=== PATIENT | female | born 1945 | race Caucasian/White ===

== ENCOUNTER 2016-11-21 11:43 | Observation (INO) | payer MEDICARE, BC ==
[2016-11-21 15:09] LABS: Hematocrit 34 % (35-47); Hemoglobin 11.2 g/dl (12.0-16.0); Mean Corpuscular HGB Conc 33 g/dl (31-36); Mean Corpuscular Hemoglobin 28 pg (27-31); Mean Corpuscular Volume 86 fL (80-97); Mean Platelet Volume 7 um3 (7.4-10.4); Red Blood Count 3.97 10^6/ul (4.0-5.4); Red Cell Distribution Width 14 % (10.5-15); White Blood Count 9.6 10^3/ul (3.5-10.8)
--- NOTE | 2016-11-21 15:12 | RAD ---
Indication: Chest pain. Single frontal view of the chest performed at 1455 hours was reviewed. No prior study is available for comparison.. No mediastinal shift is noted. Heart is of normal size and configuration. Lung heredia appear clear. IMPRESSION: NO ACTIVE CARDIOPULMONARY DISEASE IS NOTED.
--- NOTE | 2016-11-21 15:23 | ED ---
HPI Chest Pain - HPI Summary HPI Summary: Patient presents to the ED with a sudden onset of stabbing chest pain located over the left anterior chest wall which began at 10pm last night which has since improved since this morning. She notes to insomnia since last evening d/ t pain. The pain does not radiate, shift in position and she denies any other symptoms. Not worse with exertion or better with rest. Denies SOB, pressure or pain in the jaw, diaphoresis, feelings of malaise or illness, weakness. She did not take any OTC medications for the pain and denies any NSAID or aspirin use at baseline. Denies calf pain, but states she has been wearing compression hose for a few months for achiness which has helped her symptoms. Denies recent travel or sick contacts. Denies smoking history. PMHx includes HTN for which she takes Lisinopril, Atenolol, Hydrochlorothiazide, Hydralazine. She is a patient of Dr. Munoz for her arthritis and PCP is Dr. Ross. Family hx includes paternal and maternal uncles with HTN, HCL but denies any known VT or deaths related to cardiac pathologies. VS on arrival 148/88; HR 103 and temp 98 %. She has been on steroids (prednisone taper) for 2 weeks which she discontinued from last dose taken 2 days ago. - History of Current Complaint Chief Complaint: EDChestPainROMI Time Seen by Provider: 11/21/16 14:54 Hx Obtained From: Patient Hx Last Menstrual Period: NA Onset/Duration: Started Hours Ago - 14 hours prior to arrival Time of Onset: 22:00 Timing: Constant Initial Severity: Moderate Current Severity: Mild Pain Intensity: 5 Pain Scale Used: 0-10 Numeric Chest Pain Location: Left Anterior Chest Pain Radiates: No Character: Sharp/Stabbing Aggravating Factor(s): Nothing Alleviating Factor(s): Nothing Associated Signs and Symptoms: Positive: Chest Pain - Risk Factors Pulmonary Embolism Risk Factors: Negative TAD Risk Factors: Hypertension, Family Hx AMI/ACS Risk Factors: Obesity, Hypertension PMH/Surg Hx/FS Hx/Imm Hx Previously Healthy: Yes Endocrine/Hematology History: Denies: Hx Diabetes Cardiovascular History: Reports: Hx Hypertension Denies: Hx Pacemaker/ICD Respiratory History: Denies: Hx Asthma Sensory History: Denies: Hx Hearing Aid Psychiatric History: Denies: Hx Panic Disorder - Surgical History Surgery Procedure, Year, and Place: TONSILS, 3 C-SECT, OVARIAN CYST X 3, HYSTERECTOMY, PARATHYROIDECTOMY, - Immunization History Hx Pertussis Vaccination: No Immunizations Up to Date: Unable to Obtain/Confirm Infectious Disease History: No Infectious Disease History: Denies: Traveled Outside the [place] in Last 30 Days - Social History Occupation: Unemployed Lives: With Family Alcohol Use: None Hx Substance Use: No Substance Use Type: Reports: None Hx Tobacco Use: Yes Smoking Status (MU): Unknown if Ever Smoked Do You Chew or Dip Tobacco: No Review of Systems Constitutional: Negative Eyes: Negative Positive: Chest Pain Respiratory: Negative Genitourinary: Negative Positive: no symptoms reported, see HPI Musculoskeletal: Negative Neurological: Negative Psychological: Normal All Other Systems Reviewed And Are Negative: Yes Physical Exam Triage Information Reviewed: Yes Vital Signs On Initial Exam: Initial Vitals Temp Pulse Resp BP Pulse Ox 99.1 F 96 20 145/104 97 11/21/16 11:46 11/21/16 11:46 11/21/16 11:46 11/21/16 11:46 11/21/16 11:46 Vital Signs Reviewed: Yes Appearance: Positive: Well-Appearing, Well-Nourished Skin: Positive: Warm, Skin Color Reflects Adequate Perfusion Head/Face: Positive: Normal Head/Face Inspection Eyes: Positive: EOMI, MARCELA, Conjunctiva Clear Neck: Positive: Supple, Nontender, No Lymphadenopathy Respiratory/Lung Sounds: Positive: Clear to Auscultation, Breath Sounds Present Cardiovascular: Positive: IRR Musculoskeletal: Positive: Normal, Strength/ROM Intact Neurological: Positive: Sensory/Motor Intact, Alert, Oriented to Person Place, Time, Speech Normal Psychiatric: Positive: Normal AVPU Assessment: Alert - Kristen Coma Scale Coma Scale Total: 15 Diagnostics - Vital Signs Vital Signs Temp Pulse Resp BP Pulse Ox 11/21/16 15:00 98.1 F 103 20 145/70 97 11/21/16 14:48 148/88 11/21/16 13:38 99.5 F 93 16 147/89 95 11/21/16 11:46 99.1 F 96 20 145/104 97 - Laboratory Lab Results: Lab Results 11/21/16 Range/Units 14:55 WBC 9.6 (3.5-10.8) 10^3/ul RBC 3.97 L (4.0-5.4) 10^6/ul Hgb 11.2 L (12.0-16.0) g/dl Hct 34 L (35-47) % MCV 86 (80-97) fL MCH 28 (27-31) pg MCHC 33 (31-36) g/dl RDW 14 (10.5-15) % Plt Count 320 (150-450) 10^3/ul MPV 7 L (7.4-10.4) um3 Neut % (Auto) 80.9 (38-83) % Lymph % (Auto) 10.9 L (25-47) % Carver % (Auto) 6.9 (1-9) % Eos % (Auto) 1.3 (0-6) % Baso % (Auto) 0 (0-2) % Absolute Neuts (auto) 7.8 H (1.5-7.7) 10^3/ul Absolute Lymphs (auto) 1.0 (1.0-4.8) 10^3/ul Absolute Monos (auto) 0.7 (0-0.8) 10^3/ul Absolute Eos (auto) 0.1 (0-0.6) 10^3/ul Absolute Basos (auto) 0 (0-0.2) 10^3/ul Absolute Nucleated RBC 0 10^3/ul Nucleated RBC % 0 Result Diagrams: 11/21/16 14:55 11/21/16 14:55 Lab Statement: Any lab studies that have been ordered have been reviewed, and results considered in the medical decision making process. - Radiology No standard instances Xray Interpretation: No Acute Changes Radiology Interpretation Completed By: Radiologist - EKG No standard instances EKG Rhythm: Atrial Fibrillation ST Segment: Normal EKG Comparison: Other - significant change includes new onset a-fib Re-Evaluation - Re-Evaluation First Eval Change: Unchanged - pain has been unchanged since arrival Chest Pain Course/Dx - Course Course Of Treatment: NO CRITICAL CARE TIME. EKG shows new onset a-fib compared with 2008. BNP at 193; D-Dimer elevated at 300. Tachy at 103-110. BP 145/70. She is currently on Lisinopril, Atenolol, Hydrochlorothiazide, Hydralazine. Denies any blood thinners. Obese but otherwise heatlhy. Called hospitalist at 4pm. Agrees to observe patient. Will start Lovenox 1mg/kg. 88kg. Given 80mg Lovenox. She has had the reaction of elevated BP with contrast, but agrees to CTA. Will admit. - Chest Pain Differential Diagnosis/HQI/PQRI: Acute VT, Angina, Pulmonary Embolism, Other: - new onset a-fib - Diagnoses Provider Diagnoses: Atrial fibrillation Discharge - Discharge Plan Condition: Stable Disposition: ADMITTED TO [facility] Referrals: Luciano Ross MD [Primary Care Provider] -
[2016-11-21 15:28] LABS: Albumin 3.7 g/dL (3.2-5.2); C Reactive Protein 71.38 mg/L (< 5.00); Calcium 9.4 mg/dL (8.6-10.3); EGFR African American 121.7 (>60); EGFR Non-African American 94.6 (>60); Globulin 3.6 g/dL (2-4); Magnesium 1.9 mg/dL (1.9-2.7); Potassium 3.7 mmol/L (3.5-5.0); Total Bilirubin 0.8 mg/dL (0.2-1.0); Total Protein 7.3 g/dL (6.4-8.9)
[2016-11-21] MEDS: NS 0.9% 1000 ML* 1,000 ML IV SCH ×2 (15:48→19:42)
[2016-11-21 15:54] LABS: TSH (Thyroid Stimulating Horm) 1.68 mcIU/mL (0.34-5.60)
[2016-11-21] MEDS ORDERED: Enoxaparin(*) 80 MG/0.8 ML SYR SUBCUT SCH (17:00)
[2016-11-21 17:46] LABS: Urine Bacteria Absent (Absent); Urine Bilirubin Negative (Negative); Urine Glucose Negative (Negative); Urine Nitrite Negative (Negative)
[2016-11-21] MEDS ORDERED: Iohexol 350* (CONTRAST) 500 ML MDV IV ONE (17:58)
--- NOTE | 2016-11-21 18:50 | RAD ---
INDICATION: Shortness of breath. Palpitations. Elevated d-dimer. New onset atrial fibrillation. COMPARISON: November 21, 2016 chest radiograph. TECHNIQUE: Multidetector CT images were obtained from the lung apices to the upper abdomen with 75 mL Omnipaque 350 IV contrast. Pulmonary angiogram protocol. Multiplanar reformation including with maximum intensity projection. REPORT: Mild prominence of the lower lung zone interlobular septa. Reference image 21; 3 mm noncalcified nodule at the anterior segment of the RIGHT upper lobe. Reference image 33; 3 mm noncalcified nodule at the lateral segment of the RIGHT middle lobe. Reference image 38; 3 mm noncalcified nodule at the anterior basal segment of the RIGHT lower lobe. Reference image 17; 3 mm noncalcified nodule at the apical posterior segment of the LEFT upper lobe approximating the major fissure. Mild bilateral basilar compressive atelectasis due to cardiomegaly. Trace dependent LEFT pleural effusion. Negative for pneumothorax. 1.1 cm short axis precarinal lymph node. Cardiomegaly. Negative for pericardial effusion. Mild calcific plaque of normal diameter thoracic aorta. No filling defects are identified from the main to the subsegmental pulmonary arteries to indicate presence of a pulmonary embolism. Unremarkable Limited images through the upper abdomen. Negative for suspicious thoracic osseous lesions. IMPRESSION: 1. No evidence for pulmonary embolism. 2. Cardiomegaly. Minimal interstitial edema with associated LEFT pleural effusion. 3. Few tiny low suspicion pulmonary nodules for which reassessment with noncontrast CT in 12 months time suggested in setting of risk factors for bronchogenic carcinoma. 4. Solitary mildly enlarged 1.1 cm short axis precarinal lymph node. Ref: Lety H, Tristen OSPINA, Chad G, et al. Guidelines for Management of Small Pulmonary Nodules Detected on CT Scans: A Statement from the Fleischner Society. January 2005 Radiology, 237, 395-400.
[2016-11-21] MEDS ORDERED: Rivaroxaban TAB(*) 20 MG TAB PO SCH (19:30)
[2016-11-21] MEDS: Diltiazem TAB* 30 MG PO SCH (19:42)
[2016-11-21] MEDS: Atenolol TAB* 50 MG PO SCH (20:50)
[2016-11-21] MEDS: Lisinopril TAB* 10 MG PO SCH (20:50)
--- NOTE | 2016-11-22 00:57 | HP ---
CC: Dr. Luciano Ross * ADMISSION HISTORY AND PHYSICAL: DATE OF ADMISSION: 11/21/16 PRIMARY CARE DOCTOR: Dr. Luciano Ross. MY ATTENDING PHYSICIAN WHILE IN THE HOSPITAL: Dr. Rosetta Loredo * (DICTATED BY [facility]) CHIEF COMPLAINT: Palpitations since last night. HISTORY OF PRESENT ILLNESS: Ms. Lazcano is a 71-year-old female with past medical history significant for hypertension; rheumatoid arthritis; and hyperparathyroidism that has now resolved, who presents with palpitations since last night and stabbing pleuritic pain on her left side. The patient states that chest pain started without any provocation, is worse when moving around and worse with inspiration. The patient rates it as 7/10 and states that it gets better if she lies on her left side. The patient states she has had a previous episode of palpitations similar to this one about 6 months ago that resolved spontaneously by itself, but denies any previous chest pain. The patient states that her legs have been swelling more but that has been a slow increase over significant period of time. The patient denies any decreased exercise tolerance, but states that she got lightheaded and short of breath with exercise yesterday. The patient is just finishing up a dose of prednisone prescribed by her complaint evaluation supervisor for a flare of rheumatoid arthritis she finished 5 days ago. The patient checks her blood pressure 3 times a week normally and was checking every day while she was on prednisone, it was in the 140s/90s and her pulse was 107 while she was on prednisone and normally her blood pressure is in the 120s/70s with her pulse around 80. The patient states that she usually has a cough in the morning that resolves quickly but that she now gets a coughing sensation with every deep breath. The patient denies any history of heart attack, heart failure, blood clots, chest pain, or recent illness. PAST MEDICAL HISTORY: Hypertension, rheumatoid arthritis, hyperparathyroidism. PAST SURGICAL HISTORY: x3, ovarian cyst removal x3, hysterectomy, tonsillectomy, parathyroidectomy. MEDICATIONS: 1. Fish oil 360 mg daily. 2. Lisinopril 40 mg daily. 3. Atenolol 50 mg b.i.d. 4. Hydrochlorothiazide 25 mg daily. 5. Hydralazine 50 mg daily. 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 FAMILY HISTORY: The patient states she has a strong family history for myocardial infarction and hypertension. The patient's aunt has diabetes mellitus. The patient's father of lung cancer. SOCIAL HISTORY: The patient denies ever smoking, denies drinking, denies illicit drugs. 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 The patient is and had 3 kids. REVIEW OF SYSTEMS: The patient denies fevers, chills, nausea, vomiting, constipation, diarrhea, abdominal pain, changes in urine frequency, color, cloudiness, or hematuria. The patient denies weakness, numbness, or tingling in her extremities. The patient denies visual complaints beyond normal decreases in her visual acuity as she ages. The patient states she has many arthralgias due to her rheumatoid arthritis. The patient denies any new rashes. PHYSICAL EXAMINATION GENERAL: The patient is a 71-year-old female, who appears her stated age, sitting on the side of her bed, in no acute distress. VITAL SIGNS: Blood pressure 150/101, heart rate 113, temperature 98.1, respiratory rate 22, oxygen saturation 94% on room air. HEENT: Head normocephalic, atraumatic. Sclerae anicteric. Pupils equal, round , and reactive to light. Pharynx nonerythematous. Mucous membranes moist. NECK: Supple. No adenopathy. No carotid bruit auscultated. RESPIRATORY: There were slight rales that present only in the left lower lobe, otherwise clear to auscultation. Good air exchange bilaterally. CARDIAC: Tachycardic. Irregularly irregular rhythm. No murmurs auscultated. No clicks, murmurs, gallops, or rubs. Radial posterior tibialis and dorsalis pedis pulses 2+ bilaterally. 1+ pitting edema equal bilaterally in the lower extremities. ABDOMEN: Soft, nontender, nondistended. Bowel sounds present in all 4 quadrants. No abdominal bruits auscultated. No hepatosplenomegaly. Aorta nonpalpable. SKIN: No rashes. [place], dry, intact. NEUROLOGIC: Cranial nerves II through XII grossly intact. Alert and oriented x3. DIAGNOSTIC STUDIES/LAB DATA: White blood cell count 9.6, red blood cell count 3.97, hemoglobin 11.2, hematocrit 34. INR 0.96, APTT 35.1, D-dimer 300. Sodium 137, potassium 3.7, chloride 101, carbon dioxide 29, anion gap 7, BUN 13 , creatinine 0.62, glucose 97, lactic acid 0.8, magnesium 1.9. AST 20, ALT 17. Troponin I 0.00. CRP 71.38. BNP 193. TSH 1.68. Urine, yellow clear, positive blood +2, red blood cells present, squamous epithelial cells present. EKG shows irregularly irregular rhythm with discrete P waves consistent with AFib, rate 97. Chest x-ray, no acute cardiopulmonary process. My interpretation shows elevation of the left hemidiaphragm without effusion. CTA of the thorax pending. IMPRESSION: The patient is a 71-year-old female with past medical history significant for hypertension and rheumatoid arthritis who presents with new onset of atrial fibrillation and possible pulmonary embolism. The patient will be admitted overnight, CTA is pending and will be started on anticoagulation with Xarelto. 1. Atrial fibrillation. The patient will be rate controlled with home atenolol and diltiazem 30 mg p.o. q.6 hours. We will discontinue the patient's home hydralazine to hopefully not make the patient hypotensive with the addition of a new rate control and antihypertensive agent. We will order EKG to repeat in the morning as well as labs to check for any electrolyte abnormalities that might occur. The patient will be started on Xarelto 20 mg p.o. daily. The patient will follow up with primary care provider to discuss other options for anticoagulation that may be more financially feasible if her insurance does not cover any of the NOACs. This was discussed with the patient and she is in agreement with the plan. The patient was educated upon and is already familiar with the ramifications of anticoagulation such as increased bleeding, easy bruising and inability to reverse the novel anticoagulation, NOACs. We will order echo for the morning. 2. Chest pain, rule out pulmonary embolism. The patient has chest pain and physical exam consistent with possible pulmonary embolism. We will order CTA to test for pulmonary embolism and the patient is already anticoagulated fully. The patient's possible pulmonary embolism might be contributing to atrial fibrillation. After resolution of pulmonary embolism, the patient should be reassessed for appropriateness of anticoagulation when she returns to normal sinus rhythm. 3. Hypertension. The patient is currently on 4 agents for hypertension and she is currently normotensive. We will reassess the addition or subtraction of these agents as the patient's clinical condition progresses. 4. Rheumatoid arthritis. The patient seems to be in a relatively stable condition with her rheumatoid arthritis, but this is additional cardiovascular risk factor. We will continue to follow up with outpatient complaint evaluation supervisor for rheumatoid arthritis. 5. FEN. The patient is on a heart-healthy diet, no-caffeine and normal saline at 150 mL an hour. We will adjust fluids based on clinical condition and presence or absence of pulmonary embolism. 6. Code status. Full code. The patient's healthcare proxy is her , Wesley Lazcano. 7. DVT prophylaxis. The patient is up ad pete and is being fully anticoagulated with Xarelto at this time. 8. Disposition. The patient is admitted under observation to telemetry. TIME SPENT: Approximately 60 minutes were spent on this admission, 30 of which were spent obtaining her history and physical and discussing treatment options with the patient. This plan has been discussed with my attending, Dr. Rosetta Loredo, and she is in agreement. [facility] [id number]/CPS #: [id number] LOUIE
[2016-11-22] MEDS: Diltiazem TAB* 30 MG PO SCH ×3 (01:19→12:13)
[2016-11-22] MEDS: NS 0.9% 1000 ML* 1,000 ML IV SCH ×2 (02:27→08:59)
[2016-11-22 05:22] LABS: Hematocrit 27 % (35-47); Mean Corpuscular HGB Conc 33 g/dl (31-36); Mean Corpuscular Hemoglobin 28 pg (27-31); Mean Corpuscular Volume 85 fL (80-97); Mean Platelet Volume 7 um3 (7.4-10.4); Red Blood Count 3.19 10^6/ul (4.0-5.4); Red Cell Distribution Width 14 % (10.5-15); White Blood Count 6.3 10^3/ul (3.5-10.8)
[2016-11-22 05:31] LABS: Calcium 8.3 mg/dL (8.6-10.3); EGFR African American 131.4 (>60); EGFR Non-African American 102.2 (>60); HDL Cholesterol 51.3 mg/dL; Potassium 3.5 mmol/L (3.5-5.0)
[2016-11-22] MEDS: Atenolol TAB* 50 MG PO SCH (08:53)
[2016-11-22] MEDS: Lisinopril TAB* 10 MG PO SCH (08:58)
[2016-11-22] MEDS ORDERED: Hydrochlorothiazide TAB* 25 MG PO SCH (09:00)
[2016-11-22] MEDS ORDERED: Cholecalciferol TAB* 1000 UNITS PO SCH (09:00)
--- NOTE | 2016-11-22 12:03 | ECHO ---
Patient: AMANDA GONZALEZ [facility] Rec#: [id number] : 1945 Date: 11/22/2016 Age: 71y Height: 162.56 cm / 64.0 in Weight: 88.45 kg / 194.9 lbs Sex: F BSA: 1.94 Room#: [facility] Admit Date#: 11/21/2016 Type: Inpatient Referring: Yanick Crystal MD Reading: Jamar Garcia MD Family Practice Nurse Practitioner: Ирина Holt,RDCS,RDMS CC: Luciano Ross MD Transthoracic Echocardiogram Indication: AFIB, Edema BP: 127/69 HR: 79 Rhythm: A-Flutter Findings History: HTN, hyperparathyroidism Technical Comments: The study quality is good. Completed 1125 Left Ventricle: The left ventricular chamber size is normal. Mild to moderate concentric left ventricular hypertrophy is observed. There is a prominent septal knuckle. There is normal left ventricular systolic function. The estimated ejection fraction is 55-60%. The assessment of diastolic function is non-diagnostic. Left Atrium: The left atrium is moderate to severely dilated. Right Ventricle: The right ventricle is mildly dilated. The right ventricular global systolic function is mildly reduced. Right Atrium: The right atrium is moderately dilated. Aortic Valve: The aortic valve is trileaflet. The aortic valve leaflets are mildly thickened. Systolic excursion of the aortic valve is normal. There is a trace of aortic regurgitation. There is no evidence of aortic stenosis. Mitral Valve: There is mitral annular calcification. The mitral valve leaflets are mildly thickened. There is moderate to severe mitral regurgitation. at least moderate MR. There is borderline mitral stenosis. Tricuspid Valve: The tricuspid valve leaflets are normal. There is mild to moderate tricuspid regurgitation. There is evidence of moderate pulmonary hypertension. Pulmonic Valve: The pulmonic valve appears normal. There is a trace pulmonic regurgitation. Pericardium: There is no significant pericardial effusion. A pericardial fat pad is visualized. Aorta: There is mild dilatation of the ascending aorta. There is mild dilatation of the aortic arch. There is no dilation of the aortic root. Pulmonary Artery: The main pulmonary artery is not well visualized. Venous: The inferior vena cava is dilated. There is an approximate 50% respiratory change in the inferior vena cava dimension. Summary: There was not any prior study for comparison. Conclusions The left ventricular chamber size is normal. Mild to moderate concentric left ventricular hypertrophy is observed. There is normal left ventricular systolic function. The estimated ejection fraction is 55-60%. The assessment of diastolic function is non-diagnostic. The left atrium is moderate to severely dilated. The right ventricle is mildly dilated. The right atrium is moderately dilated. There is a trace of aortic regurgitation. There is moderate to severe mitral regurgitation. at least moderate MR. There is mild to moderate tricuspid regurgitation. There is evidence of moderate pulmonary hypertension. Measurements Name Value Normal Range RVIDd (AP) 2D 3 cm (0.9 - 2.6) RVDdMajor (2D) 3.5 cm (2.2 - 4.4) RAd ISD 4CH 6.2 cm (3.4 - 4.9) RA (A4C)W 4.7 cm (2.9 - 4.6) IVSd (2D) 1.5 cm (0.6 - 1) LVPWd (2D) 1.3 cm (0.6 - 1) LVIDd (2D) 4.2 cm (3.6 - 5.4) LVIDs (2D) 2.7 cm - LV FS (2D) 36 % (25 - 45) Aortic Annulus 1.9 cm (1.4 - 2.6) Ao root diameter (2D) 2.2 cm (2.1 - 3.5) Ascending Ao 3.7 cm (2.1 - 3.4) Aortic arch 3.7 cm (1.8 - 3.4) LA dimension (AP) 2D 5.5 cm (2.3 - 3.8) LAd ISD 4CH 6.8 cm (2.9 - 5.3) LA ISD 4CH W 5.2 cm (2.5 - 4.5) Name Value Normal Range LA ESV SP 4CH (A/L) 119.62 ml - LA ESV SP 2CH (A/L) 113.77 ml - LA ESV BP (A/L) 116.94 ml - LA ESV BP (A/L) index 60 ml/m2 - LA ESV SP 4CH (MOD) 106.16 ml - LA ESV SP 2CH (MOD) 106.96 ml - Name Value Normal Range MV E-wave Vmax 1.9 m/sec - MV deceleration time 177 msec - LV lateral e' Vmax 0.09 m/sec - LV E:e' lateral ratio 21 ratio - Name Value Normal Range AV Vmax 1.7 m/sec - AV VTI 34.4 cm - AV peak gradient 11.2 mmHg - AV mean gradient 5.9 mmHg - LVOT diameter 2 cm - LVOT Vmax 1 m/sec - LVOT VTI 21.4 cm - LVOT peak gradient 4 mmHg - LVOT mean gradient 2.2 mmHg - DOI (VTI) 0.6 ratio - ROSHAN (continuity Vmax) 1.8 cm2 - ROSHAN (continuity VTI) 2 cm2 - Name Value Normal Range MV Vmax 1.9 m/sec - MV VTI 35.2 cm - MV peak gradient 14 mmHg - MV mean gradient 4.4 mmHg - MV PHT 66 msec - MR Vmax 5.1 m/sec - MR VTI 159 cm - MVA (PHT) 3.3 cm2 - MVA (continuity VTI) 2 cm2 - Name Value Normal Range TR Vmax 3 m/sec - TR peak gradient 36 mmHg - RAP 8 mmHg - RVSP 44 mmHg - IVC diameter 2.3 cm - Name Value Normal Range PV Vmax 0.9 m/sec - PV peak gradient 3.2 mmHg -
[2016-11-22 12:05] VITALS: BP 134/77
--- NOTE | 2016-11-23 07:52 | DS ---
DISCHARGE SUMMARY: DATE OF ADMISSION: 11/21/16 DATE OF DISCHARGE: 11/22/16 ADMITTING PROVIDER: DIVINE Nice PRIMARY CARE PROVIDER: Dr. Luciano Ross. CHIEF COMPLAINT: Progressive shortness of breath, palpitations, and lower extremity edema. PRIMARY DIAGNOSIS: New onset atrial fibrillation. HISTORY OF PRESENT ILLNESS AND HOSPITAL COURSE: Ms. Lazcano is a 71-year-old female with PMH hypertension, rheumatoid arthritis, resolved hyperparathyroidism who presented with chest palpitations since the night prior to admission and stabbing pleuritic chest pain on the left side. Please see H&P on 11/21/16 for full details, but briefly, the patient also attested to progressive shortness of breath and lower extremity edema since 2 to 3 weeks ago. The patient states she got lightheaded and short of breath with exercise day prior to admission. Her pulse was noted to be elevated to 107 at home and she noted a coughing sensation with deep breathing. The patient has never seen a jockey room custodian and denies history of heart attacks, heart failure, blood clots, and chest pain. The patient was found to be in atrial fibrillation in the emergency room with heart rates in the low 100s, peak heart rate 118, and was started on oral diltiazem 30 mg q.6 hours in addition to her home atenolol 50 mg b.i.d. with improved rates into the 80s overnight without any hypotension. She was started on Xarelto 20 mg daily and an echocardiogram was performed which demonstrated moderate to severe mitral valve regurgitation and severe dilation of the left atrium. Ejection fraction was preserved at 55% to 60%. Diastolic function was nondiagnostic. There was trace aortic regurgitation, right atrium was moderately dilated, and right ventricle was mildly dilated. The patient had negative troponin and BNP was slightly elevated at 193. D- dimer was 300 and given pleuritic chest pain, the patient also received a CT angiogram in the ED which did not demonstrate any pulmonary embolism and showed a trace left-sided pleural effusion. There were a few tiny low suspicion pulmonary nodules including 3 mm noncalcified nodule in the lateral segment of the right middle lobe, a 3 mm noncalcified nodule at the anterior basal segment of the right lower lobe, and a 3 mm noncalcified nodule at the apical posterior segment of the left upper lobe approximating the major fissure. Recommendation for noncontrast CT in 12 months was suggested to monitor clinically. The patient was advised to establish care with a jockey room custodian for consideration of electrical cardioversion after she has been anticoagulated (of note, atrial fibrillation likely ongoing for at least 2 weeks per the patient's symptom history), as well as followup with Dr. 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 Of note, the patient had recently been prescribed a taper of prednisone for her rheumatoid arthritis that lasted 2 weeks and ended approximately 10 days ago and remarkably improved her diffuse joint pain including in her bilateral hands and legs, particularly left leg. DISCHARGE MEDICATIONS: The patient's discharge medications included: 1. Atenolol 50 mg p.o. b.i.d. 2. Cholecalciferol 1000 units p.o. 1 tab daily. 3. Diltiazem extended release 120 mg p.o. daily. 4. Hydrochlorothiazide 25 mg p.o. daily. 5. Lisinopril 20 mg p.o. daily. 6. Xarelto 20 mg p.o. daily. Of note, her original hydralazine was not continued on admission or prescribed on discharge to prevent hypotension given the addition of the diltiazem extended release. DISPOSITION: Home. DIET: Heart-healthy low salt. [id number]/[facility] #: [id number] MTDD
== END 2016-11-22 14:18 | disposition home or self-care (01) ==
LOC: ED 11:43 → MEDTELE 16:26
PROVIDERS: ADMIT Hospitalist; ATTEND Internal Medicine
DX: I48.91 Unspecified atrial fibrillation (principal); R06.02 Shortness of breath; R60.9 Edema, unspecified; I34.0 Nonrheumatic mitral (valve) insufficiency; I10 Essential (primary) hypertension; M06.9 Rheumatoid arthritis, unspecified; E21.3 Hyperparathyroidism, unspecified
CPT/HCPCS: 36415; 71010; 71275; 80048; 80053; 80061; 81003; 81015; 82550; 82553; 83605; 83690; 83735; 83880; 84443; 84484; 85025; 85379; 85610; 85730; 86140; 93005; 93306; 99283; A9270-GY; G0378; Q9967

== ENCOUNTER 2016-12-28 10:37 | Observation (INO) | payer MEDICARE, BC ==
--- NOTE | 2016-12-28 12:14 | RAD ---
INDICATION: Shortness of breath. COMPARISON: Comparison is made with a prior chest x-ray study from November 21, 2016. TECHNIQUE: Dual-energy PA and lateral views of the chest were obtained. FINDINGS: The heart is mildly enlarged and unchanged from the prior study. There is a small right basilar infiltrate which appears new. The lungs are otherwise clear. No pleural effusion is seen. IMPRESSION: SMALL RIGHT BASILAR INFILTRATE.
[2016-12-28 13:05] LABS: Urine Bacteria Absent (Absent); Urine Bilirubin Negative (Negative); Urine Glucose Negative (Negative); Urine Nitrite Negative (Negative)
[2016-12-28 13:09] LABS: Hematocrit 21 % (35-47); Mean Corpuscular HGB Conc 33 g/dl (31-36); Mean Corpuscular Hemoglobin 26 pg (27-31); Mean Corpuscular Volume 81 fL (80-97); Mean Platelet Volume 7 um3 (7.4-10.4); Red Blood Count 2.54 10^6/ul (4.0-5.4); Red Cell Distribution Width 15 % (10.5-15); White Blood Count 7.6 10^3/ul (3.5-10.8)
[2016-12-28 13:14] LABS: Comments Flag Yes
[2016-12-28 13:16] LABS: Hemoglobin 6.7 g/dl (12.0-16.0)
[2016-12-28 13:18] LABS: ALT 13 U/L (7-52); AST 17 U/L (13-39); Albumin 3.6 g/dL (3.2-5.2); Alkaline Phosphatase 65 U/L (34-104); Anion Gap 6 mmol/L (2-11); Blood Urea Nitrogen 19 mg/dL (6-24); CO2 Carbon Dioxide 27 mmol/L (22-32); Calcium 8.8 mg/dL (8.6-10.3); Chloride 104 mmol/L (101-111); Creatine Kinase 75 U/L (10-223); EGFR African American 100.8 (>60); EGFR Non-African American 78.4 (>60); Globulin 3.1 g/dL (2-4); Glucose 116 mg/dL (70-100); Magnesium 1.9 mg/dL (1.9-2.7); Sodium 137 mmol/L (133-145); Total Protein 6.7 g/dL (6.4-8.9)
[2016-12-28 13:45] LABS: TSH (Thyroid Stimulating Horm) 1.29 mcIU/mL (0.34-5.60)
[2016-12-28] MEDS ORDERED: guaiFENesin/CODIEN 100MG-10MG* 5 ML UDC PO PRN (14:42)
[2016-12-28 15:23] LABS: Total Iron Binding Capacity 477 mcg/dL (250-450); Transferrin 341 mg/dL (203-362)
[2016-12-28 15:40] LABS: Iron < 15 ug/dL (50-212)
[2016-12-28 15:48] LABS: Folate 14.05 ng/mL (>3.99)
[2016-12-28 15:49] LABS: Vitamin B12 538 pg/mL (180-914)
[2016-12-28] MEDS: Omeprazole CAP* 20 MG PO SCH (16:10)
[2016-12-28] MEDS: Atenolol TAB* 50 MG PO SCH ×2 (16:10→16:18)
[2016-12-28] MEDS: predniSONE TAB* 5 MG PO SCH (16:11)
--- NOTE | 2016-12-28 18:29 | HP ---
CC: Dr. Ross; Dr. Munoz; Dr. Lira HISTORY AND PHYSICAL: DATE OF ADMISSION: 12/28/16 PRIMARY CARE PHYSICIAN: Dr. Ross CHIEF COMPLAINT: Dyspnea on exertion, blood-tinged sputum. HISTORY OF PRESENT ILLNESS: Ms. Lazcano is a 71-year-old female with past medical history of hypertension; polymyalgia rheumatica, on prednisone; hyperparathyroidism, status post parathyroidectomy and recently diagnosed atrial fibrillation on Xarelto, who presented to the hospital with progressive shortness of breath and occasional blood-tinged sputum. The patient was hospitalized at [facility] in early November with new onset atrial fibrillation. At that time, she was started on Xarelto as well as rate controlling agent with improvement in her heart rate. She states that around that time, she developed some blood tinge in her sputum, which has been fairly persistent. She states that she has been coughing frequently, but she feels that the total amount of blood over the course of a day would not be enough to fill a [place] cup. The patient underwent a REKHA with cardioversion on 12/16/16 with successful cardioversion to sinus rhythm after initial failure with 120 joules. She successfully converted with 200 joules. The patient has noted over the course of the past few months, she has been more fatigued and has been having more dyspnea on exertion. She has not noticed any bright red blood per rectum. No melena. Denies any chest pain. She has no history of ulcers. Does not take any NSAIDs and has never had any significant indigestion. Recently, the patient went to [facility] and had significant shortness of breath just going from her handicap spot to the front of the store, which is very unusual for her. She saw Dr. Ross in the office yesterday, who had ordered the CBC and she was noted to have a significantly low hemoglobin of 7, which was down from 12 just a few months ago. He instructed her to stop taking Xarelto, but she said she had already taken the dose last night. 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 However, the patient felt that she needed to come to the hospital for further evaluation. PAST MEDICAL HISTORY: Hypertension, polymyalgia rheumatica, hyperparathyroidism , AFib. PAST SURGICAL HISTORY: x3, ovarian cyst removal x3, hysterectomy, tonsillectomy, parathyroidectomy. HOME MEDICATIONS: 1. Atenolol 50 mg by mouth daily. 2. Guaifenesin-codeine 5 mL by mouth every 4 hours as needed for cough. 3. Prednisone 5 mg by mouth daily. 4. Was on Xarelto 20 mg by mouth daily, but this was stopped by her PCP yesterday. 5. [place]-3 fatty acid 360 mg by mouth daily. 6. Lasix 20 mg by mouth daily. 7. Diltiazem 120 mg by mouth daily. 8. Vitamin D3 1000 units by mouth daily. ALLERGIES: The patient reports allergy to MRI contrast. FAMILY HISTORY: Significant for an aunt with diabetes, father with lung cancer. Reports widespread CAD and hypertension in the family. SOCIAL HISTORY: The patient had no significant smoking history. Denies any current alcohol use. No illicit drug use. REVIEW OF SYSTEMS: A 12-point review of systems is negative except for that is known in the HPI. PHYSICAL EXAMINATION GENERAL: The patient is a pleasant elderly female, lying in bed, in no apparent distress. VITAL SIGNS: On admission, temperature 98.4, heart rate of 64, respiratory rate of 20, O2 saturation is 98% on room air, blood pressure 150/83. HEENT: Head: Normocephalic, atraumatic. Eyes: Pupils are equal, round and reactive to light and accommodation. Anicteric sclerae. Pale conjunctivae. ENT: Dry mucous membranes. NECK: No cervical adenopathy. LUNGS: Clear to auscultation bilaterally. No wheezes, rales, or rhonchi. CARDIOVASCULAR: Mild bradycardia. No murmurs, gallops, or rubs. ABDOMEN: Soft, nontender, nondistended. Bowel sounds positive. EXTREMITIES: No cyanosis, clubbing, or edema. NEUROLOGIC: The patient is alert and oriented x3. No focal neurological deficits. DIAGNOSTIC STUDIES/LAB DATA: White blood cell count of 7.6, hemoglobin of 6.7 , hematocrit of 21, platelets of 341. Sodium 137, potassium 4.0, chloride of 104, carbon dioxide 27, BUN of 19, creatinine of 0.73, glucose of 116, lactic acid of 0.9. LFTs within normal limits. Troponin of 0.00. TSH of 1.29. UA with 2+ blood with absent rbc's. Chest x-ray, personally reviewed, read as possible right basilar infiltrate, although I do not appreciate much on the imaging. EKG shows normal sinus rhythm , no acute ST changes. ASSESSMENT AND PLAN: Acute blood loss anemia in a 71-year-old female with a past medical history of hypertension; polymyalgia rheumatica; hyperparathyroidism; atrial fibrillation, on Xarelto; aoknolri-pu-aubhip mitral regurgitation. 1. Acute blood loss anemia, seems most likely secondary to Xarelto use. No clear signs of GI bleed. The patient's BUN is normal, although could certainly has been having slow bleed over these past few months, specifically with her prednisone use. It seems unlikely that the amount of blood-tinged mucus she is describing could account for this amount of anemia. Guaiac was negative in the emergency department. The patient was ordered for 2 units of packed red blood cells, which will be transfused now. We will hold her Xarelto. We will check iron studies and B12 and folate, although with a normal MCV, it seems like this is more of an acute issue. 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 I will start a PPI in case there is some gastritis or gastric ulcer. I do not think the patient requires any invasive procedures at this time. If she responds appropriately to transfusion, I think that stopping Xarelto and continuing to monitor her CBCs would be a good plan at this time. She states she is due for a colonoscopy and this can likely be done as outpatient with or without an upper endoscopy. 2. Atrial fibrillation. As above, the patient is in normal sinus rhythm. We will resume her atenolol today and her diltiazem tomorrow. 3. Hypertension. Continue above medications and can also resume Lasix beginning tomorrow. 4. Chronic cough, etiology is unclear. The patient reportedly was on lisinopril on the past, but it seems like she has been off of this since her hospitalization. She has what is read as a bibasilar infiltrate on chest x-ray, however, she reports the sputum has been clear, white count has been normal, she has been having no fever as I doubt this is pneumonia. For now, we will continue to treat supportively with Robitussin with codeine as she states this helped significantly last night and that was the first time she took it. 5. Polymyalgia rheumatica. Continue home prednisone 5 mg by mouth daily with PPI as above. 6. DVT prophylaxis: SCDs. 7. Code status: The patient is a full code. TIME SPENT: Total time spent on this admission was 50 minutes, more than half the time spent [id number] with the patient in counseling and coordinating care. [id number]/[facility] #: [id number] LOIUE
[2016-12-29 06:14] LABS: Hematocrit 27 % (35-47); Hemoglobin 8.9 g/dl (12.0-16.0); Mean Corpuscular HGB Conc 34 g/dl (31-36); Mean Corpuscular Hemoglobin 27 pg (27-31); Mean Corpuscular Volume 81 fL (80-97); Mean Platelet Volume 7 um3 (7.4-10.4); Red Blood Count 3.26 10^6/ul (4.0-5.4); Red Cell Distribution Width 16 % (10.5-15); White Blood Count 7.9 10^3/ul (3.5-10.8)
[2016-12-29] MEDS: Omeprazole CAP* 20 MG PO SCH (06:15)
[2016-12-29] MEDS: Atenolol TAB* 50 MG PO SCH (08:28)
[2016-12-29] MEDS: predniSONE TAB* 5 MG PO SCH (08:28)
[2016-12-29] MEDS ORDERED: DILTIAZEM 120 MG PO SCH (09:00)
[2016-12-29] MEDS ORDERED: Diltiazem CD CAP* 120 MG PO SCH (09:00)
[2016-12-29] MEDS ORDERED: Cholecalciferol TAB* 1000 UNITS PO SCH (09:00)
[2016-12-29] MEDS ORDERED: Furosemide TAB* 20 MG PO SCH (09:00)
[2016-12-29 12:01] VITALS: BP 131/61
--- NOTE | 2016-12-29 22:03 | DS ---
CC: Dr. Ospina; Dr. Ross; Dr. Munoz; Dr. Lira * DISCHARGE SUMMARY: DATE OF ADMISSION: 12/28/16 DATE OF DISCHARGE: 12/29/16 ADMITTING PROVIDER: Donald Flores MD ATTENDING PHYSICIAN: Sky Akers MD CHIEF COMPLAINT: Shortness of breath and cough with blood tinged sputum since starting Xarelto for recently diagnosed atrial fibrillation. PRINCIPAL DIAGNOSIS: Blood loss anemia. SECONDARY DIAGNOSES: 1. Hypertension. 2. Polymyalgia rheumatica. 3. Paroxysmal atrial fibrillation. 4. Hypertension. HISTORY OF PRESENT ILLNESS AND HOSPITAL COURSE: Ms. Lazcano is a 71-year-old female with past medical history of hypertension; polymyalgia rheumatica, on prednisone; hyperparathyroidism, status post parathyroidectomy and recently diagnosed atrial fibrillation on Xarelto, status post REKHA cardioversion on 12/16. Ever since initiation of Xarelto in early November, she has had progressive blood tinged sputum with cough that has been fairly persistent. She followed with Dr. Ross day prior to admission and had blood draw with hemoglobin reportedly around 7, down from 12 baseline and he requested her to stop her Xarelto and presented to the emergency room which she did. She was transfused 2 units and her hemoglobin improved from 6.7 to 8.9. Of note, she was recommended to get her 10-year followup colonoscopy with Dr. Ospina (she just received a letter in the mail, and she will need to follow up with him within the next week to schedule both EGD and colonoscopy.) We recommend stopping her Xarelto until she can follow up with Dr. Lira. She was observed on telemetry overnight. She did not have evidence of atrial fibrillation, but with some irregularity with PACs. She does have a history of severe mitral valve regurgitation. Her iron studies were drawn. Iron was low at less than 15 , ferritin was 87. She will be started on iron supplementation. She did not have any evidence of acute GI blood loss, but may have a slow bleed. Her fecal occult test was negative in the ED. She will continue on her prednisone 5 mg for polymyalgia rheumatica and was given a new prescription for omeprazole which she will fill after seeing Dr. Ospina, if necessary. She was able to ambulate multiple times to the bathroom without complaints. for discharge. MEDICATIONS ON DISCHARGE: Include: 1. Atenolol 50 mg p.o. daily. 2. Guaifenesin codeine 5 mg by mouth q.4 hours as needed for cough. 3. Prednisone 5 mg daily. 4. [place] 3 fatty acid 360 mg p.o. daily. 5. Lasix 20 mg daily. 6. Diltiazem 120 mg by mouth daily. 7. Vitamin D3 1000 units by mouth daily. 8. Ferrous sulfate 325 mg p.o. daily. 9. Omeprazole 20 mg p.o. daily (new medication). Of note, the patient was asked to stop the Xarelto. DIET: Heart healthy. ACTIVITY: No restriction. FOLLOWUP: Please follow up with Dr. Ospina, Dr. Ross, Dr. Lira and Dr. Munoz. Dr. Munoz is already scheduled for Friday next week, 01/01/17. TIME SPENT: Time spent on discharge 35 minutes. [id number]/[facility] #: [id number] MTDD
--- NOTE | 2016-12-31 13:28 | ED ---
Negrita Keating Edward, scribed for Franco Riley MD on 12/28/16 at 1127 . Complex/Multi-Sys Presentation - HPI Summary HPI Summary: 71 y/o female presents to the ED c/o chest congestion and SOB. The SOB is aggravated with exertion. Pt also c/o productive cough - spitting up small amounts of blood for months, intermittently. Pt was instructed to stop taking her Xarelto and that her blood count decreased by her doctor today. Denies black stool. PMHx AFIB, arthritis. - History Of Current Complaint Chief Complaint: EDShortnessOfBreath Time Seen by Provider: 12/28/16 11:25 Hx Obtained From: Patient Onset/Duration: Lasting Weeks Timing: Intermittent, Lasting: Associated Signs And Symptoms: Positive: SOB, Cough - with small amounts of blood, Chest Pain - chest congestion, Other - Denies black stool - Allergies/Home Medications Allergies/Adverse Reactions: Allergies Allergy/AdvReac Type Severity Reaction Status Date / Time No Known Allergies Allergy Verified 11/21/16 18:15 Home Medications: Home Medications Guaifenesin-Codeine [G Tussin AC 100-10 mg/5Ml] 5 ml PO Q4H PRN 12/28/16 [ History Confirmed 12/28/16] predniSONE TAB* [Deltasone TAB*] 5 mg PO DAILY 12/28/16 [History Confirmed 12/28] PMH/Surg Hx/FS Hx/Imm Hx Previously Healthy: No Endocrine/Hematology History: Denies: Hx Diabetes Cardiovascular History: Reports: Hx Hypercholesterolemia - under control, Hx Hypertension Denies: Hx Pacemaker/ICD Respiratory History: Denies: Hx Asthma Sensory History: Reports: Hx Contacts or Glasses Denies: Hx Hearing Aid Opthamlomology History: Reports: Hx Contacts or Glasses Psychiatric History: Denies: Hx Panic Disorder - Surgical History Surgery Procedure, Year, and Place: TONSILS, 3 C-SECT, OVARIAN CYST X 3, HYSTERECTOMY, PARATHYROIDECTOMY, Hx Anesthesia Reactions: No Infectious Disease History: No Infectious Disease History: Denies: Traveled Outside the [place] in Last 30 Days - Family History Known Family History: Positive: Cardiac Disease - [place], Hypertension - Social History Alcohol Use: None Hx Substance Use: No Substance Use Type: Reports: None Hx Tobacco Use: Yes Smoking Status (MU): Never Smoked Tobacco Review of Systems Constitutional: Negative Eyes: Negative ENT: Negative Positive: Other - Chest congestion Positive: Shortness Of Breath, Cough - with small amounts of blood Gastrointestinal: Negative Genitourinary: Negative Musculoskeletal: Negative Skin: Negative Neurological: Negative Psychological: Normal All Other Systems Reviewed And Are Negative: Yes Physical Exam - Summary Physical Exam Summary: VITAL SIGNS: Reviewed. GENERAL: Patient is a well-developed and nourished female who is lying comfortable in the stretcher. Patient is not in any acute respiratory distress. HEAD AND FACE: No signs of trauma. No ecchymosis, hematomas or skull depressions. No sinus tenderness. EYES: PERRLA, EOMI x 2, No injected conjunctiva, no nystagmus. EARS: Hearing grossly intact. Ear canals and tympanic membranes are within normal limits. MOUTH: Oropharynx within normal limits. NECK: Supple, trachea is midline, no adenopathy, no JVD, no carotid bruit, no c- spine tenderness, neck with full ROM. CHEST: Symmetric, no tenderness at palpation LUNGS: Clear to auscultation bilaterally. No wheezing or crackles. CVS: Irregular rate and rhythm, S1 and S2 present, no murmurs or gallops appreciated. ABDOMEN: Soft, non-tender. No signs of distention. No rebound no guarding, and no masses palpated. Bowel sounds are normal. EXTREMITIES: FROM in all major joints, no edema, no cyanosis or clubbing. NEURO: Alert and oriented x 3. No acute neurological deficits. Speech is normal and follows commands. SKIN: Dry and warm Triage Information Reviewed: Yes Vital Signs On Initial Exam: Initial Vitals Temp Pulse Resp BP Pulse Ox 98.4 F 64 20 150/83 98 12/28/16 10:40 12/28/16 10:40 12/28/16 10:40 12/28/16 10:40 12/28/16 10:40 Vital Signs Reviewed: Yes Diagnostics - Vital Signs Vital Signs Temp Pulse Resp BP Pulse Ox 12/28/16 10:40 98.4 F 64 20 150/83 98 - Laboratory Result Diagrams: 12/28/16 12:40 12/28/16 12:40 Lab Statement: Any lab studies that have been ordered have been reviewed, and results considered in the medical decision making process. - Radiology CXR Xray Interpretation: No Acute Changes - SMALL RIGHT BASILAR INFILTRATE Radiology Interpretation Completed By: Radiologist - EKG 1 EKG Interpretation: 12:20 - SR @ [address] elevations. Q wave in III and aVF. Re-Evaluation - Re-Evaluation 1 Re-Evaluation Time: 13:55 Comment: Discuss plan to admit Complex Multi-Symp Course/Dx Assessment/Plan: 71 y/o female presents to the ED c/o chest congestion and SOB. The SOB is aggravated with exertion. Pt also c/o productive cough - spitting up small amounts of blood for months, intermittently. Pt was instructed to stop taking her Xarelto and that her blood count decreased by her doctor today. Denies black stool. PMHx AFIB, arthritis. CXR SHOWS SMALL RIGHT BASILAR INFILTRATE. EKG SHOWS 12:20 - SR @ [address] elevations. Q wave in III and aVF. Test results show normocytic normochronic chronic anemia, H&H 6.7/21, Glucose 116, UA (-) UTI. Occult blood is negative. In the ED course the pt was given IV fluids, and we initiated packed red blood cells for a blood transfusion. I discussed the case with Dr. Flores who accepted the pt for admission. - Diagnoses Provider Diagnoses: Symptomatic anemia - Physician Notifications Discussed Care Of Patient With: Donald Flores Time Discussed With Above Provider: 13:47 Instructed by Provider To: Admit As Inpatient Discharge - Discharge Plan Condition: Stable Disposition: ADMITTED TO [facility] The documentation as recorded by the Negrita gracia Edward accurately reflects the service I personally performed and the decisions made by me, Franco Riley MD.
== END 2016-12-29 12:30 | disposition home or self-care (01) ==
LOC: ED 10:37 → MEDTELE 14:03 → ED 15:26
PROVIDERS: ADMIT Hospitalist; ATTEND Internal Medicine
DX: D50.0 Iron deficiency anemia secondary to blood loss (chronic) (principal); R06.02 Shortness of breath; R04.2 Hemoptysis; D68.32 Hemorrhagic disorder due to extrinsic circulating anticoagulants; I48.0 Paroxysmal atrial fibrillation; I10 Essential (primary) hypertension; Z79.01 Long term (current) use of anticoagulants; M35.3 Polymyalgia rheumatica; Z79.899 Other long term (current) drug therapy; R05 Cough
CPT/HCPCS: 36415; 71020; 80053; 81003; 81015; 82270; 82550; 82607; 82728; 82746; 83540; 83550; 83605; 83735; 84443; 84466; 84484; 85025; 85730; 86850; 86900; 86901; 86922; 93005; 96374; 99284; A9270-GY; G0378; J7512; P9040